=== PATIENT | female | born 1950 | race African-American/Black ===

== ENCOUNTER → 2016-10-28 | Outpatient (CLI) | payer BC ==
[2015-11-10 14:41] VITALS: BP 121/45
[~2016-10-28] MED LIST: AMOX875T PO; ATOR20TA58 PO; CLOP75TA PO; FURO-68 PO; LISI-334 PO; METO25TA4 PO; POTA20TA12 PO; amlodipine; lisinopril; metoprolol; no home meds
--- NOTE | 2016-10-28 09:52 | KCIC ---
PROCEDURE Abdominal aortic sonogram. HISTORY Abdominal aortic aneurysm screening. Hypertension. TECHNIQUE Sonographic imaging of the abdominal aorta was performed. COMPARISON None. FINDINGS The proximal abdominal aorta measures 2.4 cm in caliber, the mid abdominal aorta measures 1.8 cm in caliber, and the distal abdominal aorta measures 1.6 cm in caliber. The common iliac arteries measure 8 mm in caliber, bilaterally. There is mild atherosclerotic plaque throughout the aorta. IMPRESSION No sonographic evidence of an abdominal aortic aneurysm. Electronically signed by: Ariela Nix (Oct 28, 2016 09:50:01)
--- NOTE | 2016-10-28 10:05 | KCIC ---
DEXA scan Indication: Postmenopausal. Bone mineral analysis of the lumbar spine and left hip was performed. The bone mineral density of the lumbar spine L1-L4 is 1.096 with a T-score of 0.4. The bone mineral density of the left femoral neck is 0.875 with a T-score of -0.5. Impression: Normal bone mineral density of the lumbar spine and left femoral neck. Electronically signed by: Lanre Horvath MD (Oct 28, 2016 10:03:49)
--- NOTE | 2016-10-28 14:32 | KCIC ---
Bilateral digital screening mammograms with CAD: HISTORY Routine screening. COMPARISON Comparison is made to previous studies dated 10/20/2015 and 09/08/2007. FINDINGS Breast density category B. The skin and nipples show no abnormalities. No abnormal lymph nodes are seen in the axilla. The breast parenchyma shows scattered fibroglandular density. There are no dominant masses, suspicious calcifications or architectural distortions. IMPRESSION No evidence of malignancy. Recommend routine annual mammographic screening. This study was interpreted with the benefit of Computerized Aided Detection (CAD). Mammography is not 100% sensitive in detecting breast cancer. Therefore, a self breast exam and a clinical breast exam are very important. A negative mammogram does not negate a clinically suspicious finding and should not result in a delay in biopsying a clinically suspicious abnormality. BI-RADS category 1. Negative. This patient's information has been entered into a reminder system for the patient to be notified with the results of this examination and a target date for her next mammograms. Electronically signed by: Lena Steward MD (Oct 28, 2016 14:31:59)
== END | disposition home or self-care (01) ==
LOC: KCIC US 08:42
PROVIDERS: ATTEND Physician Assistant Medical
DX: Z12.31 Encounter for screening mammogram for malignant neoplasm of breast (principal); I71.4 Abdominal aortic aneurysm, without rupture; Z78.0 Asymptomatic menopausal state
CPT/HCPCS: 76770; 77080; G0202; 77067

== ENCOUNTER → 2019-09-26 | Outpatient (CLI) | payer BC ==
[2015-11-10 14:41] VITALS: BP 121/45
--- NOTE | 2019-09-26 16:56 | RAD ---
CHEST PA LATERAL History: Viral upper respiratory infection Comparison: 11/07/2015 portable AP view of the chest. Findings: Frontal and lateral views of the chest were obtained. Tortuosity of the thoracic aorta is noted. The cardiomediastinal silhouette is normal. Pulmonary vasculature is normal. The lungs are clear. No pleural effusion or pneumothorax is seen. There is no acute bone abnormality. IMPRESSION: No acute cardiopulmonary process. Electronically signed by: Jared Silverio MD (09/26/2019 4:53 PM) [id number]
== END | disposition home or self-care (01) ==
LOC: LAB 16:16
PROVIDERS: ATTEND Physician Assistant Medical
DX: Z03.89 Encounter for observation for other suspected diseases and conditions ruled out (principal)
CPT/HCPCS: 71046

== ENCOUNTER → 2020-08-07 | Outpatient (CLI) | payer BC ==
[2015-11-10 14:41] VITALS: BP 121/45
[~2020-08-07] MED LIST changes: -LISI-334 PO; +LISI20TA18 PO
--- NOTE | 2020-08-07 16:17 | RAD ---
INDICATION: Reason: RT LEG SWELLING / Spl. Instructions: / History: COMPARISON: None. TECHNIQUE: Grayscale, color and doppler ultrasound images were obtained of the right lower extremity venous vasculature. RIGHT: No thrombus identified in the common femoral vein, femoral vein, popliteal vein or visualized calf ve ins. IMPRESSION: * No thrombus identified in deep venous system of right lower extremity. Electronically signed by: Jorge L Natarajan MD (08/07/2020 4:14 PM) [id number]
== END ==
LOC: US 15:17
PROVIDERS: ATTEND Physician Assistant Medical
DX: R22.41 Localized swelling, mass and lump, right lower limb (principal); M79.89 Other specified soft tissue disorders
CPT/HCPCS: 93971

== ENCOUNTER → 2021-04-21 | Outpatient (CLI) | payer BC ==
[2015-11-10 14:41] VITALS: BP 121/45
--- NOTE | 2021-04-21 09:33 | RAD ---
US DPLX VENOUS EXTREMITY LOWER LT History: Reason: LT LEG PAIN/SWELLING / Spl. Instructions: / History: Comparison: None. Technique: Multiple longitudinal and transverse high resolution real-time images of the venous system of left lower extremity were obtained with color and Doppler sampling. Findings: The common femoral, superficial femoral, popliteal and proximal calf veins are all patent and demonst rate normal flow and compressibility. Normal respiratory phasicity and augmentation is present. Impression: 1. No evidence of deep vein thrombosis. Electronically signed by: Zeeshan Darby DO (04/21/2021 9:31 AM) [id number]
== END ==
LOC: US 08:44
PROVIDERS: ATTEND Physician Assistant
DX: R60.0 Localized edema (principal); R60.9 Edema, unspecified; M79.605 Pain in left leg
CPT/HCPCS: 93971

== ENCOUNTER → 2021-06-15 | Outpatient (CLI) | payer BC ==
[2015-11-10 14:41] VITALS: BP 121/45
--- NOTE | 2021-06-15 09:47 | RAD ---
MR#: [id number] Date of Study: 06/15/2021 Ordering Physician: THAD TOWNSEND, Referring Physician: THAD TOWNSEND, Tech: Julio Gutierrez MBA, RDMS, RVT, RDCS, RTR APPROVED REPORT Patient Location : OUT-PATIENT Indications VENOUS INSUFFICIENCY Findings Grayscale images of bilateral saphenofemoral junctions and superficial veins both lower extremities a re grossly unremarkable without any evidence of thrombus. Spectral waveform and color duplex analysis was performed did not show any significant reflux. The r ight greater saphenous vein measured 4.2 mm at the saphenofemoral junction without any significant re flux. The left greater saphenous vein measured 3.5 mm at the saphenofemoral junction and did not lisandra w any significant reflux. The lesser saphenous veins bilaterally did not show any significant reflux . Critical Notification Critical Value: No <Conclusion> No significant venous reflux noted bilateral greater and lesser saphenous veins Signed by : Thad Townsend, Electronically Approved : 06/15/2021 09:46:59
--- NOTE | 2021-06-15 17:40 | CARD ---
MR#: [id number] Date of Study: 06/15/2021 Ordering Physician: THAD GOODRICH, Referring Physician: THAD GOODRICH Tech: Paloma Pierce [facility] APPROVED REPORT EXAM: Two-dimensional and M-mode echocardiogram with Doppler and color Doppler. Other Information Quality : AverageHR: 63bpm Rhythm : NSR INDICATION Hypertension/HCVD RISK FACTORS Hypertension 2D DIMENSIONS RVDd3.2 (2.9-3.5cm)Left Atrium(2D)3.9 (1.6-4.0cm) IVSd0.9 (0.7-1.1cm)Aortic Root(2D)2.8 (2.0-3.7cm) LVDd4.0 (3.9-5.9cm)LVOT Diameter2.0 (1.8-2.4cm) PWd0.9 (0.7-1.1cm)LVDs2.8 (2.5-4.0cm) FS (%) 28.5 %SV38.1 ml LVEF(%)55.6 (>50%) Aortic Valve AoV Peak Hilario.168.5cm/sAoV VTI39.2cm AO Peak GR.11.4mmHgLVOT Peak Hilario.132.7cm/s AO Mean GR.5mmHgAVA (VMAX)2.47cm2 Mitral Valve MV E Glydpgkg24.9cm/sMV DECEL CPIH396xk MV A Xwczrnaq947.8cm/sE/A Ratio0.9 Tricuspid Valve TR P. Brepbclj404vr/sTR Peak Gr.38mmHg LEFT VENTRICLE The left ventricle is normal size. There is normal left ventricular wall thickness. The left ventricu lar systolic function is normal. Estimated ejection fraction 60%. There is normal LV segmental wall motion. Transmitral Doppler flow pattern is Grade I-abnormal relaxation pattern. RIGHT VENTRICLE The right ventricle is normal size. There is normal right ventricular wall thickness. The right ventr icular systolic function is normal. ATRIA The left atrium size is normal. The right atrium size is normal. The interatrial septum is intact wit h no evidence for an atrial septal defect or patent foramen ovale as noted on 2-D or Doppler imaging. AORTIC VALVE The aortic valve is normal in structure and function. Doppler and Color Flow revealed no significant aortic regurgitation. There is no significant aortic valvular stenosis. MITRAL VALVE The mitral valve is normal in structure and function. There is no evidence of mitral valve prolapse. There is no mitral valve stenosis. Doppler and Color-flow revealed mild mitral regurgitation. TRICUSPID VALVE The tricuspid valve is normal in structure and function. Doppler and Color Flow revealed mild tricusp id regurgitation. Estimated PAP 32 mmHg. There is no tricuspid valve stenosis. PULMONIC VALVE The pulmonary valve is normal in structure and function. Doppler and Color Flow revealed no pulmonic valvular regurgitation. GREAT VESSELS The aortic root is normal in size. The ascending aorta is normal in size. The IVC is normal in size a nd collapses >50% with inspiration. PERICARDIAL EFFUSION There is no evidence of significant pericardial effusion. Critical Notification Critical Value: No <Conclusion> The left ventricular systolic function is normal. Estimated ejection fraction 60%. There is normal LV segmental wall motion. Transmitral Doppler flow pattern is Grade I-abnormal relaxation pattern. Mild mitral regurgitation. Mild tricuspid regurgitation. Estimated PAP 32 mmHg. There is no evidence of significant pericardial effusion. Signed by : Thad Goodrich, Electronically Approved : 06/15/2021 17:39:38
== END ==
LOC: US 09:31
PROVIDERS: ATTEND Internal Medicine Cardiovascular Disease
DX: I08.1 Rheumatic disorders of both mitral and tricuspid valves (principal); I87.2 Venous insufficiency (chronic) (peripheral); I10 Essential (primary) hypertension
CPT/HCPCS: 93306; 93970